=== PATIENT | male | born 1980 | race Asian ===

== ENCOUNTER 2022-10-09 10:43 | Emergency (ER) | payer OTHER ==
[~2022-10-09] VITALS: Ht 185.4 cm; Wt 81.6 kg
[2022-10-09 11:10] VITALS: BP_SYST 134
--- NOTE | 2022-10-09 11:26 | NUR ---
Patient arrived to ED 4 for c/o pain in perineal area. Patient denies pain when urinating. Patient said that last night "he wanted to go restroom, but could not." Patient "feels pain, feels weird" in perineal area. Patient denies PMH. Patient denies taking any medications prior to arrival. Will continue to monitor. Call light within reach.
--- NOTE | 2022-10-09 11:26 | NUR ---
Patient to ER bed 4 to gown for evaluation. Side rails up. Report given to PRISCILA JOHNSTON.
[2022-10-09 12:33] LABS: BILIRUBIN,URINE NEGATIVE (NEGATIVE); BLOOD, URINE NEGATIVE (NEGATIVE); CLARITY/URINE CLEAR (CLEAR); COLOR,URINE YELLOW (YELLOW); GLUCOSE,URINE NEGATIVE (NEGATIVE); KETONES,URINE NEGATIVE (NEGATIVE); LEUKOCYTE ESTERASE ,URINE NEGATIVE (NEGATIVE); NITRITE, URINE NEGATIVE (NEGATIVE); PROTEIN URINE TRACE (NEGATIVE); UROBILINOGEN,URINE 0.2 (0.2-1.0)
[2022-10-09] MEDS ORDERED: CIPR500T5 PO (12:47)
[2022-10-09 12:59] VITALS: BP_SYST 124
--- NOTE | 2022-10-09 12:59 | NUR ---
Patient given written and verbal discharge instructions and verbalizes understanding. ER MD discussed with patient the results and treatment provided. Patient in stable condition. ID arm band removed. IV catheter removed intact and dressing applied, no active bleeding. Opportunity for questions provided and answered. Medication side effect fact sheet provided.
== END 2022-10-09 12:59 | disposition home or self-care (01) ==
LOC: SED 10:43
DX: N34.2 Other urethritis (principal); R10.2 Pelvic and perineal pain; R31.9 Hematuria, unspecified; Z79.899 Other long term (current) drug therapy
CPT/HCPCS: 81003; 99283